=== PATIENT | male | born 1995 | race Caucasian/White ===

== ENCOUNTER 2019-09-30 19:34 | Emergency (ER) | payer SELFPAY ==
[~2019-09-30] VITALS: Ht 167.6 cm; Wt 59.9 kg
[~2019-09-30 19:34] MED LIST: CYCLOBENZAPRINE5 MG PO; MOTRIN800 MG PO; NORCO1 TA1 PO
[2019-09-30 20:04] VITALS: Ht 167.6 cm; Wt 59.9 kg
[2019-09-30 20:35] LABS: BASOPHIL % 0.3 % (0-2); PLATELET COUNT 326 x10^3mcL (130-400); RED CELL DISTRIBUTION WIDTH 12.1 % (11.5-14.5)
[2019-09-30 20:49] LABS: CALCIUM 8.5 mg/dL (8.5-10.1); CARBON DIOXIDE 27.7 mmol/L (21-32); CHLORIDE SERUM 101 mmol/L (98-107); CREATININE SERUM 0.7 mg/dL (0.7-1.3); GFR1 > 60 mL/min; GLUCOSE SERUM 119 mg/dL (74-106); POTASSIUM SERUM 3.3 mmol/L (3.5-5.1); SODIUM SERUM 137 mmol/L (136-145)
[2019-09-30 20:54] LABS: ALBUMIN 3.7 g/dL (3.4-5.0); ALKALINE PHOSPHATASE 125 U/L (46-116); ALT/SGPT 40 U/L (16-63); AST/SGOT 25 U/L (15-37); BILIRUBIN TOTAL 0.27 mg/dL (0.20-1.00); TOTAL PROTEIN, SERUM 7.8 g/dL (6.4-8.2)
[2019-09-30 21:45] VITALS: BP 113/77
== END 2019-09-30 21:45 | disposition home or self-care (01) ==
LOC: ED 19:34
PROVIDERS: Emergency Medicine
DX: B34.9 Viral infection, unspecified (principal); Z90.89 Acquired absence of other organs
CPT/HCPCS: 36415; 87804; J1885; J2765